=== PATIENT | female | born 1975 | race Caucasian/White ===

== ENCOUNTER 2016-06-19 09:12 | Emergency (ER) | payer MEDICAID ==
[~2016-06-19] VITALS: Ht 162.6 cm; Wt 63.0 kg
[2016-06-19] MEDS ORDERED: AZIT500T3 PO (09:56)
[2016-06-19] MEDS ORDERED: DIPH25CA83 PO (09:56)
[2016-06-19] MEDS ORDERED: METH4TAB PO (09:56)
[2016-06-19] MEDS ORDERED: TRIA15OI8 TP (09:56)
[2016-06-19] MEDS ORDERED: BENZ100C86 PO (09:56)
[2016-06-19] MEDS ORDERED: ONDANSETRON HCL 4MG/2ML VIAL IV STA (10:19)
[2016-06-19] MEDS ORDERED: MORPHINE SULFATE 4 MG/ML CPJ (NOT FOR IM USE) IV STA (10:19)
[2016-06-19] MEDS ORDERED: SODIUM CHLORIDE 0.9% 1,000 ML IV ONE (10:19)
[2016-06-19 10:48] LABS: BASOPHILS % 0.3 % (0.0-2.0); HEMOGLOBIN. 13.6 g/dL (12.0-16.0); LYMPHOCYTES % 11.9 % (20.0-50.0); MEAN CORPUSCULAR HEMOGLOBIN 28.1 pg (28.0-32.0); MEAN CORPUSCULAR HGB CONC 33.2 g/dL (31.0-37.0); MEAN CORPUSCULAR VOLUME 84.6 fL (81.0-99.0); MEAN PLATELET VOLUME 7.9 fl (7.4-10.4); MONOCYTES % 5.9 % (2.0-8.0); NEUTROPHILS % 81.9 % (40.0-76.0); PLATELET 342 x1000/uL (130-400); RED BLOOD CELL COUNT 4.85 mill/uL (4.2-5.4); RED CELL DISTRIBUTION WIDTH 14.3 % (11.6-14.6); WHITE BLOOD COUNT 10.3 x1000/uL (4.5-11.0)
[2016-06-19 10:54] LABS: CHLORIDE 100 mEq/L (98-107); INDEX HEMOLYSI 1 (1-3); INDEX ICTERIC 1 (1-4); INDEX LIPEMIC 1 (1-3)
[2016-06-19 10:55] LABS: PROTHROMBIN TIME 10.8 sec
[2016-06-19 11:02] LABS: ALANINE AMINOTRANSFERASE 58 IU/L (13-61); ANION GAP 15; CALCIUM 9.5 mg/dL (8.5-10.1); CARBON DIOXIDE 28 mEq/L (21-32); LIPASE 448 IU/L (73-393); UREA NITROGEN BLOOD 14 mg/dL (7-21); eGFR > 60 mL/min (>60)
[2016-06-19 11:33] LABS: CLARITY URINE CLEAR (CLEAR); COLOR URINE YELLOW (YELLOW); GLUCOSE URINE NEGATIVE (NEGATIVE); KETONES URINE TRACE (NEGATIVE); LEUKOCYTE ESTERASE URINE NEGATIVE (NEGATIVE); NITRITE URINE NEGATIVE (NEGATIVE); OCCULT BLOOD URINE 2+ (NEGATIVE); PH URINE 5.5 (4.5-8.0); PROTEIN URINE NEGATIVE (NEGATIVE); SPECIFIC GRAVITY URINE 1.029 (1.005-1.030); UROBILINOGEN URINE 0.2 E.U./dL (0.2-1.0)
[2016-06-19 11:49] LABS: MUCUS URINE 2+ /lpf (< = 2+); SQUAMOUS EPITHELIAL CELL URINE 3+ /lpf (RARE/1+)
[2016-06-19 11:51] LABS: BACTERIA URINE 2+
[2016-06-19] MEDS ORDERED: DIPHENHYDRAMINE 25MG CAPSULE PO ONE (13:30)
[2016-06-19 13:35] VITALS: BP 115/73
== END 2016-06-19 14:27 | disposition home or self-care (01) ==
LOC: ER 10:29
DX: K80.80 Other cholelithiasis without obstruction (principal); L50.9 Urticaria, unspecified
CPT/HCPCS: 36415; 76705; 80053; 81001; 81025; 83690; 85025; 85610; 96360; 99285; J2270; J2405; J7030; J7040; Z7610; Q0163